=== PATIENT | male | born 1980 | race Caucasian/White ===

== ENCOUNTER 2019-05-07 22:55 | Emergency (ER) | payer OTHER, MEDICAID ==
[~2019-05-07] VITALS: Ht 185.4 cm; Wt 122.0 kg
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
[2019-05-07] MEDS ORDERED: KETOROLAC TROMETHAMINE INJ 30 MG/ML VIAL ONE (23:19)
[2019-05-07] MEDS ORDERED: KETOROLAC TROMETHAMINE INJ 60 MG/2 ML VIAL IM ONE (23:30)
--- NOTE | 2019-05-07 23:37 | NUR ---
Patient discharged to home in stable condition. Written and verbal after care instructions given. Patient verbalizes understanding of instruction and RX. pt ambulatory with a steady gait.
[2019-05-07 23:38] VITALS: BP 134/78
== END 2019-05-07 23:38 | disposition home or self-care (01) ==
LOC: ER 22:58
DX: S93.491A Sprain of other ligament of right ankle, initial encounter (principal); S09.8XXA Other specified injuries of head, initial encounter; M25.522 Pain in left elbow; Z60.2 Problems related to living alone; V49.49XA Driver injured in collision with other motor vehicles in traffic accident, initial encounter; Y93.89 Activity, other specified; Y92.413 State road as the place of occurrence of the external cause; Y99.8 Other external cause status
CPT/HCPCS: 96372; 99283; J1885